=== PATIENT | female | born 1970 | race African-American/Black ===

== ENCOUNTER 2019-02-13 21:46 | Emergency (ER) | payer OTHER ==
[~2019-02-13] VITALS: Ht 165.1 cm; Wt 90.7 kg
[2019-02-13 22:02] VITALS: Ht 165.1 cm; Wt 90.7 kg
[2019-02-13 22:53] LABS: APPEARANCE CLEAR (CLEAR); BACTERIA NONE SEEN /hpf (NONE SEEN); BILIRUBIN NEGATIVE (NEGATIVE); COLOR YELLOW (YELLOW); EPITHELIAL CELLS 0-5 /hpf (0-5); GLUCOSE NEGATIVE (NEGATIVE); KETONE NEGATIVE (NEGATIVE); NITRITE NEGATIVE (NEGATIVE); PROTEIN NEGATIVE (NEGATIVE); RED CELLS - URINE NONE SEEN /hpf (0-5); SPECIFIC GRAVITY 1.015 (1.005-1.020); UROBILINOGEN NORMAL (NORMAL); WHITE CELLS - URINE 0-5 /hpf (0-5)
[2019-02-13 23:11] LABS: BASOPHILS 0.4 % (0-2); EOSINOPHILS 5.4 % (0-7); HEMOGLOBIN 10.1 g/dL (12-16); IMMATURE GRANULOCYTES 0.2 % (0-5); LYMPHOCYTES 33.6 % (15-50); MCH 22.3 pg (26.0-34.0); MCHC 31.6 g/dL (31.0-37.0); MCV 70.8 fL (80.0-100.0); MONOCYTES 6.8 % (2-11); NEUTROPHILS 53.6 % (40-80); PLATELET COUNT 197 10x3/uL (130-400); RBC 4.52 10x6/uL (4.00-5.40); RDW 17.2 % (11.5-14.5); WBC 5.2 10x3/uL (4.8-10.8)
[2019-02-13 23:22] LABS: ALBUMIN 2.8 g/dL (3.4-5.0); ANION GAP 8.9 mmol/L (8-16); BILIRUBIN - TOTAL 0.13 mg/dL (0.2-1.3); CALCIUM 8.6 mg/dL (8.5-10.1); CARBON DIOXIDE 29.8 mmol/L (21.0-32.0); CREATININE - SERUM 0.9 mg/dL (0.6-1.3); POTASSIUM - SERUM 3.7 mmol/L (3.5-5.1); PROTEIN - SERUM 6.6 g/dL (6.4-8.2)
[2019-02-13] MEDS ORDERED: VOLTAREN75 MG PO (23:55)
[2019-02-13] MEDS ORDERED: BACLOFEN20 M1 PO (23:55)
[2019-02-13] MEDS ORDERED: AUGMENTIN 875-11 TAB PO (23:55)
[2019-02-14 00:15] VITALS: BP 110/60
== END 2019-02-14 00:16 | disposition home or self-care (01) ==
LOC: D.ER 21:46
PROVIDERS: Family Medicine
DX: J06.9 Acute upper respiratory infection, unspecified (principal); N39.0 Urinary tract infection, site not specified